=== PATIENT | female | born 1975 | race Caucasian/White ===

== ENCOUNTER 2017-01-23 17:31 | Emergency (ER) | payer OTHER ==
[2017-01-23 21:58] LABS: RED BLOOD COUNT 4.59 M/UL (4.00-5.10); WHITE BLOOD COUNT 6.6 K/UL (4.5-11.0)
[2017-01-23 22:16] LABS: BUN/CREATININE RATIO 21 (0-10)
== END 2017-01-24 06:50 | disposition short-term general hospital (02) ==
LOC: ER1 17:31
PROVIDERS: Emergency Medicine
DX: F31.30 Bipolar disorder, current episode depressed, mild or moderate severity, unspecified (principal); S60.812A Abrasion of left wrist, initial encounter; F41.9 Anxiety disorder, unspecified; F17.200 Nicotine dependence, unspecified, uncomplicated; X78.9XXA Intentional self-harm by unspecified sharp object, initial encounter; Z88.0 Allergy status to penicillin; Z79.899 Other long term (current) drug therapy
CPT/HCPCS: 36415; 80053; 80307; 81001; 83735; 84703; 85025; 93005; 99285; G0480

== ENCOUNTER 2017-03-15 16:20 | Emergency (ER) | payer SELFPAY | END 2017-03-15 17:20 | disposition home or self-care (01) | LOC: ER1 16:20 | DX: Z76.0 Encounter for issue of repeat prescription (principal); Z88.0 Allergy status to penicillin; Z88.8 Allergy status to other drugs, medicaments and biological substances | CPT/HCPCS: 99281 ==

== ENCOUNTER 2017-03-19 13:46 | Inpatient (IN) | payer OTHER ==
[~2017-03-19] VITALS: Ht 165.1 cm; Wt 81.6 kg
[2017-03-19 14:24] LABS: HEMOGLOBIN 14.2 gm/dl (12.3-15.3); RED BLOOD COUNT 4.62 M/UL (4.00-5.10); WHITE BLOOD COUNT 13.7 K/UL (4.5-11.0)
[2017-03-19 14:34] LABS: BUN/CREATININE RATIO 18 (0-10)
[2017-03-19 20:41] LABS: GLUCOSE,CSF 63 mg/dL (50-80); TOTAL PROTEIN,CSF 24 mg/dL (20-45)
[2017-03-20 07:28] LABS: BUN/CREATININE RATIO 14 (0-10)
[2017-03-20 07:41] LABS: HEMOGLOBIN 13.9 gm/dl (12.3-15.3); RED BLOOD COUNT 4.48 M/UL (4.00-5.10); WHITE BLOOD COUNT 13.9 K/UL (4.5-11.0)
[2017-03-20] MEDS ORDERED: CELEXA40 MG PO (10:19)
[2017-03-20] MEDS ORDERED: TRAZODONE HCL100 MG PO (10:20)
[2017-03-20] MEDS ORDERED: LAMICTAL100 MG PO (10:20)
[2017-03-20] MEDS ORDERED: STELAZINE PO (10:21)
[2017-03-20] MEDS ORDERED: SEROQUEL400 MG PO (10:21)
[2017-03-20] MEDS ORDERED: FLONASE 0.05% N16 GM (10:22)
[2017-03-20] MEDS ORDERED: PROTONIX 40 MG40 M1 PO (10:41)
--- NOTE | 2017-03-20 12:39 | NUR ---
PATIENT REPORTED OF DRINKING 4 DRINKS DAILY AND OCCASSIONAL MORE THAN R. NO VISIBLE WITHDRAWAL NOTED, REPORTED THE ABOVE TO DR. BALL, ORDER RECEIVED
[2017-03-20 13:42] LABS: HEMOGLOBIN 14.5 gm/dl (12.3-15.3); RED BLOOD COUNT 4.64 M/UL (4.00-5.10); WHITE BLOOD COUNT 14.7 K/UL (4.5-11.0)
[2017-03-20 13:57] LABS: BUN/CREATININE RATIO 12 (0-10)
[2017-03-21 05:50] LABS: HEMOGLOBIN 12.8 gm/dl (12.3-15.3); WHITE BLOOD COUNT 13.1 K/UL (4.5-11.0)
[2017-03-21 05:52] LABS: RED BLOOD COUNT 4.15 M/UL (4.00-5.10)
[2017-03-21 06:07] LABS: BUN/CREATININE RATIO 10 (0-10)
--- NOTE | 2017-03-21 10:33 | NUR ---
patient reported of feeling bad, sweating profusely, vs wnl, denies h/a, pain. nausea and vomiting. bs normal. reported to dr. lomeli and acknowledged. will continue to monitor
[2017-03-22 05:54] LABS: HEMOGLOBIN 12.1 gm/dl (12.3-15.3); RED BLOOD COUNT 3.94 M/UL (4.00-5.10)
[2017-03-22 05:55] LABS: WHITE BLOOD COUNT 7.5 K/UL (4.5-11.0)
[2017-03-22 06:13] LABS: BUN/CREATININE RATIO 8 (0-10)
[2017-03-23 06:27] LABS: HEMOGLOBIN 12.4 gm/dl (12.3-15.3); RED BLOOD COUNT 4.06 M/UL (4.00-5.10)
[2017-03-23 06:31] LABS: WHITE BLOOD COUNT 5.3 K/UL (4.5-11.0)
[2017-03-23 06:47] LABS: BUN/CREATININE RATIO 7 (0-10)
[2017-03-24 05:36] LABS: HEMOGLOBIN 12.7 gm/dl (12.3-15.3); RED BLOOD COUNT 4.16 M/UL (4.00-5.10); WHITE BLOOD COUNT 6.3 K/UL (4.5-11.0)
[2017-03-24 06:00] LABS: BUN/CREATININE RATIO 13 (0-10)
[2017-03-24] MEDS ORDERED: TYLENOL 325MG325 MG PO (16:41)
[2017-03-24] MEDS ORDERED: CHLORASEPTIC177 ML PO (16:42)
[2017-03-24] MEDS ORDERED: OMNICEF 300 MG300 MG PO (16:43)
== END 2017-03-24 18:21 | disposition home or self-care (01) | DRG 872 ==
LOC: ER1 13:46 → M/S 23:34 → ZEROF 23:34 → M/S 03-20 09:47
PROVIDERS: Family Medicine; Internal Medicine; ADMIT Internal Medicine
DX: A41.9 Sepsis, unspecified organism (principal); E87.2 Acidosis; J03.90 Acute tonsillitis, unspecified; F17.210 Nicotine dependence, cigarettes, uncomplicated; F10.10 Alcohol abuse, uncomplicated; R13.10 Dysphagia, unspecified; F60.3 Borderline personality disorder; F31.9 Bipolar disorder, unspecified; F41.9 Anxiety disorder, unspecified; J45.909 Unspecified asthma, uncomplicated; Z88.0 Allergy status to penicillin; Z88.8 Allergy status to other drugs, medicaments and biological substances; Z79.899 Other long term (current) drug therapy
CPT/HCPCS: 36415; 62270; 70450; 70491; 71010; 80048; 80053; 81001; 82550; 82553; 82607; 82945; 83540; 83550; 83605; 83735; 83874; 84100; 84132; 84157; 84484; 84703; 85025; 85027; 85610; 85730; 86140; 87040; 87070; 87081; 87205; 87390; 87880; 89051; 93005; 96374; 96375; 99285; G0480; J0696; J1650; J2250; J2270; J2405; J7030; J7050; Q9962